=== PATIENT | female | born 1965 | race Caucasian/White ===

== ENCOUNTER 2017-10-04 18:48 | Emergency (ER) | payer OTHER ==
[~2017-10-04] VITALS: Ht 162.6 cm; Wt 139.6 kg
[~2017-10-04 18:48] MED LIST: IBUP-1542 PO; TRAM50TA2 PO
[2017-10-04 18:52] VITALS: Ht 162.6 cm; Wt 139.6 kg
[2017-10-04] MEDS ORDERED: ASPIRIN 325 MG TAB PO STA (23:25)
--- NOTE | 2017-10-04 23:25 | ERD ---
ER Documentation Chief Complaint Chief Complaint bilateral foot painx 1 month, denies injury (REYNA,MIKE) HPI This 51 yr female seen at Dr Villela sent here for admission pt has orders on scrip. " renal vs cardiac . pt reports fatigue, disoriented and bilateral LE pitting edema with foot pain, PMH of DM, HTN, nephrolithiasis, weight gain and back pain (REYNA,MIKE) ROS All systems reviewed and are negative except as per history of present illness. (REYNA,MIKE) Medications Home Meds Active Scripts Furosemide (Lasix) 20 Mg Tab, 20 MG PO DAILY for 14 Days, #14 TAB Prov:REYNA,MIKE 10/05/17 Tramadol HCl (Tramadol HCl) 50 Mg Tablet, 50 MG PO Q4 Y for PAIN, #20 TAB Prov:SAMANTHA CERVANTES MD 11/17/15 Ibuprofen* (Motrin*) 600 Mg Tab, 600 MG PO Q6, #20 TAB Prov:SAMANTHA CERVANTES MD 11/17/15 Allergies Allergies: Coded Allergies: No Known Allergy (Unverified , 11/13/14) PMhx/Soc Medical and Surgical Hx: pt denies Surgical Hx History of Surgery: Yes (appy, d&c) Anesthesia Reaction: No Hx Cardiac Disorders: Yes (HTN) Hx Miscellaneous Medical Probl: Yes (DM) Hx Alcohol Use: Yes (occasional) Hx Substance Use: No Hx Tobacco Use: Yes Smoking Status: Current every day smoker (REYNA,MIKE) Physical Exam Vitals Vital Signs Date Time Temp Pulse Resp B/P Pulse Ox O2 Delivery O2 Flow Rate FiO2 10/05/17 03:08 98.2 88 20 113/58 98 Nasal Cannula 10/05/17 01:13 77 22 109/65 100 Nasal Cannula 0.5 10/05/17 00:39 74 24 112/61 100 Nasal Cannula 1.5 10/04/17 18:52 98.2 100 20 155/91 100 (ORIANA BEY MD) Physical Exam Const: Obese, dyspneic, 51-year-old female in no acute distress, Eyes: Normal Conjunctiva ENT: Normal External Ears, Nose and Mouth. Neck: No JVD Resp: Respirations even, unlabored, diminished posterior bases, no rales auscultated Cardio: S1-S2, regular rate and rhythm, faint murmur Abd: Soft obese, nontender, no epigastric pain Ext: Bilateral lower extremities present with pitting edema, faint posterior tibial pulses, dorsalis totalis not palpated Neur: Awake and alert Psych: Normal Mood and Affect (REYNA,MIKE) Result Diagram: 10/05/17 0033 10/05/17 0033 Results 24 hrs Laboratory Tests Test 10/04/17 23:37 10/05/17 00:33 Urine Color YELLOW Urine Clarity SLIGHTLY CLOUDY Urine pH 5.0 Urine Specific [place] 1.025 Urine Ketones NEGATIVEmg/dL Urine Nitrite NEGATIVEmg/dL Urine Bilirubin NEGATIVEmg/dL Urine Urobilinogen NEGATIVEmg/dL Urine Leukocyte Esterase NEGATIVELeu/ul Urine Microscopic RBC 8/HPF Urine Microscopic WBC 4/HPF Urine Squamous Epithelial Cells MODERATE/HPF Urine Bacteria FEW/HPF Urine Hemoglobin 2+mg/dL Urine Glucose NEGATIVEmg/dL Urine Total Protein NEGATIVEmg/dl White Blood Count 7.810^3/ul Red Blood Count 3.7710^6/ul Hemoglobin 11.3g/dl Hematocrit 34.4% Mean Corpuscular Volume 91.2fl Mean Corpuscular Hemoglobin 30.0pg Mean Corpuscular Hemoglobin Concent 32.8g/dl Red Cell Distribution Width 13.6% Platelet Count 23556^3/UL Mean Platelet Volume 11.2fl Neutrophils % 60.3% Lymphocytes % 26.5% Monocytes % 10.2% Eosinophils % 2.5% Basophils % 0.4% Nucleated Red Blood Cells % 0.0/100WBC Neutrophils # 4.710^3/ul Lymphocytes # 2.110^3/ul Monocytes # 0.810^3/ul Eosinophils # 0.210^3/ul Basophils # 0.010^3/ul Nucleated Red Blood Cells # 0.010^3/ul Prothrombin Time 12.0Sec Prothrombin Time Ratio 0.9 INR International Normalized Ratio 0.88 Activated Partial Thromboplast Time 26.9Sec Sodium Level 141mmol/L Potassium Level 3.8mmol/L Chloride Level 105mmol/L Carbon Dioxide Level 27mmol/L Anion Gap 13 Blood Urea Nitrogen 15mg/dl Creatinine 0.76mg/dl Glucose Level 103mg/dl Calcium Level 9.8mg/dl Total Bilirubin 0.2mg/dl Direct Bilirubin 0.00mg/dl Indirect Bilirubin 0.2mg/dl Aspartate Amino Transf (AST/SGOT) 23IU/L Alanine Aminotransferase (ALT/SGPT) 35IU/L Alkaline Phosphatase 76IU/L Troponin I < 0.012ng/ml B-Type Natriuretic Peptide 43PG/ML Total Protein 7.5g/dl Albumin 3.8g/dl Globulin 3.70g/dl Albumin/Globulin Ratio 1.02 Lipase 46U/L Current Medications Medications (Trade) Dose Ordered Sig/Ashley Route PRN Reason Start Time Stop Time Status Last Admin Dose Admin Aspirin (Aspirin) 325 mg ONCE STAT PO 10/04/17 23:25 10/04/17 23:29 DC 10/05/17 00:07 (ORIANA BEY MD) Results 24 hrs Interpretation text CBC shows no evidence of hemorrhage or infection Chemistry shows no evidence of significant electrolyte abnormalities or renal insufficiency Liver function tests shows no evidence of acute biliary or hepatic dysfunction Coagulation study showed no concerning coagulpathy Lipase shows no evidence of acute pancreatitis Cardiac biomarkers show no evidence of acute myocardial injury or coronary ischemia BNP shows no evidence of acute congestive heart failure, and or volume overload. (MIKE ORELLANA) Procedures/MDM EKG read by Dr Bey Rate/Rhythm: Regular rate and rhythm at a rate of 78 bpm no ectopy Intervals: Normal Impression: No evidence of ischemia or arrhythmia PROCEDURE: CHEST CLINICAL INDICATION: 51-year-old female with chest pain. TECHNIQUE: AP semi-erect view of the chest was obtained portably on two radiographs. The images were reviewed on a PACS workstation. COMPARISON: None. FINDINGS: The cardiomediastinal silhouette has a normal appearance. There is no evidence for an infiltrate. There is no evidence for congestive heart failure. There is no evidence for pneumothorax. The osseous structures are intact. IMPRESSION: No evidence for active cardiopulmonary disease. Electronically viewed and signed by .Carlos Lawson MD, MD on 10/05/2017 00:24 PROCEDURE: ULTRASOUND BILATERAL LOWER EXTREMITY VENOUS CLINICAL INDICATION: 51-year-old female with lower extremity swelling and chest pain. TECHNIQUE: Multiple sonographic images of the bilateral lower extremity deep venous system was obtained utilizing grayscale, color-flow, compressive sonography and doppler imaging with augmentation. The images were reviewed on a PACS workstation. COMPARISON: None. FINDINGS: There is normal compressibility and flow within the common femoral, deep femoral , superficial femoral, popliteal, posterior tibial and right peroneal vein. The left peroneal vein was not able to be visualized. IMPRESSION: No sonographic evidence for deep venous thrombosis however the left peroneal vein was not visualized. Electronically viewed and signed by .Carlos Lawson MD, MD on 10/05/2017 00:10 This 51-year-old female presents to emergency department for evaluation of bilateral lower extremity edema. Patient was sent over by Dr Villela, patient to be evaluated for renal versus cardiac abnormality, patient has had bilateral lower extremity edema increasing over the last 2-3 weeks with dependent edema, pain, weakness, and fatigue. Patient had been seen by [facility] emergency room for right flank pain diagnosed with a 1 cm kidney stone. Emergency room course includes a full cardiovascular workup, EKG shows a normal sinus rhythm, diagnostic labs are unremarkable for hemorrhage, infection, electrolyte imbalance, renal insufficiency, pancreatitis, hepatitis, cardio biomarkers are normal, BNP does not show signs of overload, patient is satting 100% on room air , received a bilateral vascular ultrasound to rule out DVT with radiology findings there is normal compressibility and flow within the common femoral, deep femoral, superficial femoral, popliteal, posterior tibial and right peroneal vein. The left peroneal vein was not able to be visualized. No sonographic event for deep vein thrombosis however left peroneal vein is not visualized chest x-ray is normal with no evidence for active cardiopulmonary disease. Patient received prophylactic aspirin 325 mg, Dr. Villela called report given no diagnostic tests are available at this time. Physician states that patient will be admitted if she is short of breath,. This case discussed with supervising physician .Admitting MD Dr Villela called update provided now that diagnostic testing available, patient has no evidence of CHF or renal insufficiency, no evidence of DKA, deep vein thrombosis, discussed started 20 of Lasix p.o. and follow-up in his office tomorrow. Physician agrees with plan, patient will not be admitted. Patient will be discharged home with Lasix 20 mg 1 tab p.o. daily 14 tabs given. Patient is stable with no new complaints during ER course, clinically there is no current evidence to suggest meningitis, sepsis, acute abdomen, acute coronary syndromes, pulmonary embolism or any other emergent condition appearing to require further evaluation or hospitalization. I feel the patient is stable for discharge at this time. I have discussed results, examination findings, the treatment plan with the patient and family present prior to discharge. Indications for emergent reevaluation, side effects of medication were also discussed. All questions were answered. Patient verbalizes understanding and agrees with plan of care. (MIKE ORELLANA) Attending Attestation: Discussed the patient's case with the physician's assistant professor of art/nurse practitioner and agree with the findings and plan as documented in their note. There is no indication for admission at this time. (ORIANA BEY MD) Departure Diagnosis: Primary Impression: SOB (shortness of breath) Additional Impression: Edema Edema type: unspecified Qualified Code: R60.9 - Edema, unspecified type Additional Instructions: Thank you for for coming to [facility] for your care today. Please ask your nurse or provider if you have questions about your care today and do not leave until all your questions have been answered. Please use any medications given as directed and follow-up with your doctor (or the doctor you were referred to) in the next 2-3 days. If you do not have a primary care doctor [place] [facility] [place] You may also use motrin and tylenol as needed for fever and/or pain unless instructed otherwise by your provider or nurse. Indications for more urgent follow-up have been discussed, but you may return to the Emergency Department at ANY time for any worrisome or worsening symptoms. If you have abdominal pain, please know that no test or exam you received is perfect and you should follow up within 8 hours for continued pain. If you had any imaging studies today, such as an X-Ray or CT Scan, these studies will be reviewed later by a radiologist. You will be called if there are important findings that were not identified today, so make sure the contact information you provided at registration is correct. If you received any narcotic pain control medicine today, such as Vicodin, Morphine or Dilaudid, your coordination and judgment may be affected for a number of hours. Please do not drive or operate heavy machinery, and you may want someone to assist you at home. If you were given a prescription for narcotic medication, be aware that it is very addictive- use sparingly and only if necessary. MIKE ORELLANA Oct 04, 2017 23:25 ORIANA BEY MD Oct 08, 2017 09:56
--- NOTE | 2017-10-05 00:10 | RADRPT ---
PROCEDURE: ULTRASOUND BILATERAL LOWER EXTREMITY VENOUS CLINICAL INDICATION: 51-year-old female with lower extremity swelling and chest pain. TECHNIQUE: Multiple sonographic images of the bilateral lower extremity deep venous system was obt ained utilizing grayscale, color-flow, compressive sonography and doppler imaging with augmentation. The images were reviewed on a PACS workstation. COMPARISON: None. FINDINGS: There is normal compressibility and flow within the common femoral, deep femoral, superficial femora l, popliteal, posterior tibial and right peroneal vein. The left peroneal vein was not able to be vi sualized. IMPRESSION: No sonographic evidence for deep venous thrombosis however the left peroneal vein was not visualized . .Carlos Lawson MD, MD Date Time Electronically viewed and signed by .Carlos Lawson MD, on 10/05/2017 00:10 .M/
--- NOTE | 2017-10-05 00:24 | RADRPT ---
PROCEDURE: CHEST CLINICAL INDICATION: 51-year-old female with chest pain. TECHNIQUE: AP semi-erect view of the chest was obtained portably on two radiographs. The images w ere reviewed on a PACS workstation. COMPARISON: None. FINDINGS: The cardiomediastinal silhouette has a normal appearance. There is no evidence for an infiltrate. There is no evidence for congestive heart failure. There is no evidence for pneumothorax. The osseou s structures are intact. IMPRESSION: No evidence for active cardiopulmonary disease. .Carlos Lawson MD, MD Date Time Electronically viewed and signed by .Carlos Lawson MD, on 10/05/2017 00:24 .M/
[2017-10-05 01:13] LABS: BASOPHILS % 0.4 % (0.0-2.0); EOSINOPHILS # 0.2 10^3/ul (0.0-0.5); EOSINOPHILS % 2.5 % (0.0-7.0); HEMATOCRIT 34.4 % (37.0-47.0); HEMOGLOBIN 11.3 g/dl (12.0-16.0); LYMPHOCYTES # 2.1 10^3/ul (0.8-2.9); LYMPHOCYTES % 26.5 % (15.0-51.0); MEAN CORPUSCULAR HGB CONC 32.8 g/dl (32.0-37.0); MEAN CORPUSCULAR VOLUME 91.2 fl (82.0-101.0); MEAN PLATELET VOLUME 11.2 fl (7.4-10.4); MONOCYTE # 0.8 10^3/ul (0.3-0.9); MONOCYTES % 10.2 % (0.0-11.0); NEUTROPHIL # 4.7 10^3/ul (1.6-7.5); NEUTROPHILS % 60.3 % (39.0-77.0); PLATELET COUNT 280 10^3/UL (140-415); RED BLOOD COUNT 3.77 10^6/ul (4.20-5.40); RED CELL DISTRIBUTION WIDTH 13.6 % (11.5-14.5); WHITE BLOOD COUNT 7.8 10^3/ul (4.8-10.8)
[2017-10-05 01:35] LABS: INR 0.88; PT RATIO 0.9
[2017-10-05 01:36] LABS: PARTIAL THROMBOPLASTIN TIME 26.9 Sec (25.0-35.0)
[2017-10-05 01:38] LABS: ALANINE AMINOTRANSFERASE 35 IU/L (13-69); ALBUMIN 3.8 g/dl (3.3-4.9); ALBUMIN/GLOBULIN RATIO 1.02; ALKALINE PHOSPHATASE 76 IU/L (42-121); ANION GAP 13 (8-16); ASPARTATE AMINO TRANSFERASE 23 IU/L (15-46); BILIRUBIN,INDIRECT 0.2 mg/dl (0-1.1); BILIRUBIN,TOTAL 0.2 mg/dl (0.2-1.3); BLOOD UREA NITROGEN 15 mg/dl (7-20); CALCIUM 9.8 mg/dl (8.4-10.2); CARBON DIOXIDE 27 mmol/L (21-31); CHLORIDE 105 mmol/L (97-110); CREATININE 0.76 mg/dl (0.44-1.00); GLUCOSE 103 mg/dl (70-220); POTASSIUM 3.8 mmol/L (3.5-5.1); SODIUM 141 mmol/L (135-144); TOTAL PROTEIN 7.5 g/dl (6.1-8.1)
[2017-10-05 01:49] LABS: B-TYPE NATRIURETIC PEPTIDE 43 PG/ML (0-125)
[2017-10-05 01:53] LABS: TROPONIN-I < 0.012 ng/ml (0.00-0.12)
[2017-10-05 02:06] LABS: ADD UMIC YES; UR ASCORBIC ACID NEGATIVE (NEGATIVE); UR BACTERIA FEW /HPF (NONE SEEN); UR BILIRUBIN (Dip) NEGATIVE (NEGATIVE); UR BLOOD (Dip) 2+ mg/dL (NEGATIVE); UR CLARITY SLIGHTLY CLOUDY (CLEAR); UR COLOR YELLOW (YELLOW); UR GLUCOSE (Dip) NEGATIVE (NEGATIVE); UR KETONES (Dip) NEGATIVE (NEGATIVE); UR LEUKOCYTE ESTERASE (Dip) NEGATIVE Leu/ul (NEGATIVE); UR NITRITE (Dip) NEGATIVE (NEGATIVE); UR RBC 8 /HPF (0-5); UR SPECIFIC GRAVITY (Dip) 1.025 (1.003-1.030); UR SQUAMOUS EPITHELIAL CELL MODERATE /HPF (FEW); UR TOTAL PROTEIN (Dip) NEGATIVE (NEGATIVE); UR UROBILINOGEN (Dip) NEGATIVE (NEGATIVE)
[2017-10-05] MEDS ORDERED: LAS20 PO (02:53)
[2017-10-05 03:08] VITALS: BP 113/58; PULSE 88; RESP 20; TEMP 98.2
== END 2017-10-05 03:10 | disposition home or self-care (01) ==
LOC: FTE 18:48
DX: R06.02 Shortness of breath (principal); R60.0 Localized edema; I10 Essential (primary) hypertension; E11.9 Type 2 diabetes mellitus without complications; F17.210 Nicotine dependence, cigarettes, uncomplicated
CPT/HCPCS: 71010; 80053; 81001; 83690; 83880; 84484; 85025; 85610; 85730; 93005; 93970; Z7502; Z7610